=== PATIENT | female | born 1990 | race Caucasian/White ===

== ENCOUNTER 2017-07-22 12:55 | Day surgery (SDC) | payer OTHER ==
[2017-07-14 16:00] VITALS: BMI 21.7
--- NOTE | 2017-07-21 21:16 | P.GSHP ---
History of Present Illness H&P Date: 07/22/17 CHIEF COMPLAINT:Ventral hernia. HISTORY OF PRESENT ILLNESS: The patient is a 27-year-old female who presents with a history of swelling along the epigastrium. Findings were consistent with ventral hernia. Now she presents for further evaluation and management. PAST MEDICAL HISTORY: Please see list. PAST SURGICAL HISTORY: Please see list. MEDICATIONS: Please see list. ALLERGIES: Please see list. SOCIAL HISTORY: No illicit drug use FAMILY HISTORY: No reports of Crohn disease or ulcerative colitis. REVIEW OF ORGAN SYSTEMS: CONSTITUTIONAL: No reports of fevers or chills. GI: Denies any blood in stools or constipation. PHYSICAL EXAM: VITAL SIGNS: Stable GENERAL: Well-developed pleasant female in no acute distress. HEENT: No scleral icterus. Extraocular movements grossly intact. Moist buccal mucosa. NECK: Supple without lymphadenopathy. CHEST: Unlabored respirations. Equal bilateral excursions. CARDIOVASCULAR: Regular rate and rhythm. Distal 2+ pulses. ABDOMEN: Soft, nondistended. Tender along the epigastrium. MUSCULOSKELETAL: No clubbing, cyanosis, or edema. ASSESSMENT: 1. Ventral hernia. PLAN: 1. Recommend proceeding with robotic ventral hernia repair with mesh. 2. Benefits and risks of surgical intervention was discussed including possibility of open technique. 3. DVT prophylaxis. 4. Antibiotic prophylaxis. Past Medical History Past Medical History: No Reported History History of Any Multi-Drug Resistant Organisms: None Reported Past Surgical History: Section, Tonsillectomy Additional Past Surgical History / Comment(s): Hip surgery for infection at 2 yrs old. Past Anesthesia/Blood Transfusion Reactions: Family History of Problems w/ Anesthesia, Motion Sickness Additional Past Anesthesia/Blood Transfusion Reaction / Comment(s): Mom PONV. Past Psychological History: Anxiety Smoking Status: Never smoker Past Alcohol Use History: None Reported Additional Past Alcohol Use History / Comment(s): Smoked for 2 yrs, quit in 2014. Past Drug Use History: None Reported - Past Family History Mother History Unknown: Yes Family Medical History: Hypertension Father Family Medical History: No Reported History Medications and Allergies Home Medications Medication Instructions Recorded Confirmed Type Norgestimate-Ethinyl Estradiol 1 each PO QAM 07/14/17 07/14/17 History [Ortho Tri-Cyclen 28 Tablet] Allergies Allergy/AdvReac Type Severity Reaction Status Date / Time No Known Allergies Allergy Verified 07/14/17 15:50
[~2017-07-22 12:55] MED LIST: ACETAMINOPHEN IVPB ONE; DEXAMETHASONE SOD PHOSPHATE 10 MG/ML 1 ML VIAL IV ONE; HEPARIN SODIUM,PORCINE 5,000 UNIT/ML 1 ML VIAL SQ ONE; IBUPROFEN IV 400 MG in SODIUM CHLORIDE 0.9% 250 ML IV ONE; LACTATED RINGERS 1,000 ML IV SCH; MIDAZOLAM 2 MG/2 ML VIAL IV PRN; MORPHINE SULFATE 4 MG/ML SYRINGE IV PRN; ONDANSETRON ODT 4 MG TAB PO ONE; ceFAZolin IN SWFI 2 GM/20 ML SYRINGE IVP ONE
[2017-07-22] MEDS: ONDANSETRON 4 MG/2 ML VIAL IVP ONE ×2 (13:43→17:11)
[2017-07-22] MEDS ORDERED: LIDOCAINE 1% 20 ML VIAL (10MG/ML) FOR IV START INTRADERMA ONE (13:43)
[2017-07-22] MEDS ORDERED: SCOPOLAMINE 1.5MG/72HR PATCH TRANSDERM ONE (13:44)
[2017-07-22] MEDS ORDERED: SUCCINYLCHOLINE CHLORIDE 100 MG/5 ML SYR IV ONE (15:04)
[2017-07-22] MEDS ORDERED: PHENYLEPHRINE-0.9% NACL SYG 1 MG/10 ML SYRINGE ONE (15:04)
[2017-07-22] MEDS ORDERED: MORPHINE SULFATE 10 MG/ML SYRINGE ONE (15:04)
[2017-07-22] MEDS ORDERED: PROPOFOL 10 MG/ML 20 ML VIAL IV ONE (15:04)
[2017-07-22] MEDS ORDERED: GLYCOPYRROLATE 0.2 MG/ML 2 ML VIAL ONE (15:04)
[2017-07-22] MEDS ORDERED: LIDOCAINE 1% INJ 10MG/ML (20 ML MDV) ONE (15:04)
[2017-07-22] MEDS ORDERED: NEOSTIGMINE 1 MG/ML 10 ML VIAL ONE (15:04)
[2017-07-22] MEDS ORDERED: MIDAZOLAM 2 MG/2 ML VIAL ONE (15:04)
[2017-07-22] MEDS ORDERED: ROCURONIUM BROMIDE 10 MG/ML 10 ML VIAL IV ONE (15:04)
[2017-07-22] MEDS ORDERED: fentaNYL (PF) 50 MCG/ML 2 ML AMP ONE (15:04)
[2017-07-22] MEDS ORDERED: BUPIVACAINE (PF) 0.25% 30 ML VIAL SQ ONE (15:26)
--- NOTE | 2017-07-22 16:47 | P.OP ---
Date of Procedure: 07/22/17 Description of Procedure: SURGEON: CHRISTIANO CARRILLO MD DISHWASHER: 1. PILAR PATEL PREOPERATIVE DIAGNOSES: 1. Initial ventral hernia, epigastrium 2. Anxiety POSTOPERATIVE DIAGNOSES: 1. Initial ventral hernia, epigastrium, incarcerated, 2 cm 2. Anxiety OPERATION: 1. Robotic-assisted da Nya Xi laparoscopic repair of initial incarcerated ventral hernia 2 cm without mesh ANESTHESIA: General with local ESTIMATED BLOOD LOSS: 5 mL. SPECIMENS: None. COMPLICATIONS: None. INDICATIONS: The patient is a 27-year-old female who presents with initial ventral hernia of the epigastrium. Surgical intervention with laparoscopic versus robotic and open techniques were reviewed. Placement of mesh was also reviewed. The patient wishes to avoid mesh. Benefits and risks were thoroughly described. Informed consent was obtained. DESCRIPTION OF PROCEDURE: The patient was brought into the operating room and laid in supine position. After general induction, the abdomen had been prepped and draped in standard sterile fashion. Ioban draping was also placed. Prior to incision, a timeout protocol was confirmed with surgical team regarding the patient's name including procedures to be performed. The robot was primed prior to the procedure. A field block using local anesthetic was placed along hernia site including the proposed port sites. Initial incision was made with an #11 blade along the left upper quadrant. A 0 degree 5 mm laparoscopic trocar entry was performed. Diagnostic laparoscopy demonstrated an incarcerated ventral hernia of the epigastrium. A 8 mm trocar was placed along the left lateral abdominal wall approximately 10 cm lateral to the lower midline. An 8 mm port was placed along the left lower quadrant under direct localization. The 5-mm port was exchanged for an 8 mm robotic port. Placements of the ports were 12 cm from the target anatomy and 8 cm apart. The [employer]i Xi robot was previously primed, prepped and draped then docked along the left side of the patient. I then sat at the robot Da Nya Xi console where working arms of the robot were scissors, needle residential driver, and graspers placed by the shampoo assistant. Fascial defect of 2 cm was identified including laxity of the abdominal wall. Attention was brought to the umbilicus where an incarcerated ventral hernia was identified also containing fat. The incarcerated contents was reduced as the peritoneal fat was cleaned from the abdominal wall. Next, hemostasis was checked with cautery. The hernia defect of 2-cm was oversewn using #1 Stratafix with fascial imbrication 3. A final endoscopic imaging was obtained. All instruments and pneumoperitoneum were evacuated from the abdominal cavity. The da Nya Xi robot was undocked from the patient. I re-scrubbed into the case for closure of incisions. The incisions were reapproximated using 4-0 Monocryl in an interrupted subcuticular fashion. Exofin liquid glue was applied to the skin after cleansing the skin with normal saline and dilute hydrogen peroxide. An abdominal binder was placed. At the end of the procedure, needle, sponge, and instrument count had been verified correct by sales service technician. The patient was taken to the postanesthesia care unit in stable condition. FINDINGS: 1. Intial incarcerated ventral hernia epigastrium, 2cm 2. Abdominal wall laxity with diastasis recti of the epigastrium repaired 3. Left indirect inguinal hernia 1 cm. Plan - Discharge Summary Discharge Rx Participant: Yes New Discharge Prescriptions: No Action Norgestimate-Ethinyl Estradiol [Ortho Tri-Cyclen 28 Tablet] 1 each PO QAM Discharge Medication List Norgestimate-Ethinyl Estradiol [Ortho Tri-Cyclen 28 Tablet] 1 each PO QAM [History]
[2017-07-22 16:50] VITALS: TEMP 98.2
[2017-07-22] MEDS ORDERED: diphenhydrAMINE 50 MG/ML 1 ML VIAL IVP ONE (16:54)
[2017-07-22] MEDS ORDERED: KETOROLAC 30 MG/ML 1 ML VIAL IVP ONE (16:54)
[2017-07-22] MEDS ORDERED: MEPERIDINE 50 MG/ML SYRINGE IVP ONE (16:58)
[2017-07-22 17:07] VITALS: RESP 16
[2017-07-22] MEDS ORDERED: PROMETHAZINE INJ 25 MG/ML 1 ML VIAL IVPB ONE (17:11)
[2017-07-22] MEDS ORDERED: LACTATED RINGERS 1,000 ML IV ONE (17:13)
[2017-07-22 18:35] VITALS: BP 103/68
[2017-07-22 18:47] VITALS: PULSE 80
== END 2017-07-22 19:34 | disposition home or self-care (01) ==
LOC: OR 12:55
PROVIDERS: ATTEND Surgery Plastic and Reconstructive Surgery
DX: K43.6 Other and unspecified ventral hernia with obstruction, without gangrene (principal); F41.9 Anxiety disorder, unspecified; K40.90 Unilateral inguinal hernia, without obstruction or gangrene, not specified as recurrent; Q79.59 Other congenital malformations of abdominal wall; Z87.891 Personal history of nicotine dependence; Z82.49 Family history of ischemic heart disease and other diseases of the circulatory system; Z79.890 Hormone replacement therapy
CPT/HCPCS: 81025; 86900; 86901; 86850; 49653; J2250; J1200; J1644; J1100; J2550; J2710; J2175; J2270; J2405; J2001; J3010; J1885; J0131; J2370; J0330; J1741; J2704; J0690